=== PATIENT | male | born 1945 | race Caucasian/White ===

== ENCOUNTER 2018-02-17 15:15 | Emergency (ER) | payer OTHER, MEDICARE, BC ==
[2018-02-17] MEDS ORDERED: Lidocaine 1% 20 ML MDV INJECT ONE (15:47)
[2018-02-17] MEDS ORDERED: Bacitracin Oint 1 GM U/D Packet TOP ONE (15:48)
[2018-02-17] MEDS ORDERED: Acetaminophen/HYDROcodone 325-10 MG Tab PO ONE (16:02)
--- NOTE | 2018-02-17 16:09 | EDM.PDOC ---
ED HPI GENERAL MEDICAL PROBLEM - General Chief Complaint: Laceration Stated Complaint: CUT LT ARM Time Seen by Provider: 02/17/18 16:00 Source of Information: Reports: Patient, Family History Limitations: Reports: No Limitations - History of Present Illness INITIAL COMMENTS - FREE TEXT/NARRATIVE: 73-year-old male fell at a local store cutting his left forearm on a display. He has a 10 cm transverse laceration on the flexor surface of his forearm just distal to the elbow. It is into the subcutaneous tissue but does not involve any deep structures. Bleeding is controlled. Onset: Sudden Duration: Hour(s): (Within the last hour) Location: Reports: Upper Extremity, Left Severity: Moderate Associated Symptoms: Reports: No Other Symptoms Left Arm Pain Score (Numeric/FACES): 5 - Related Data Allergies Allergy/AdvReac Type Severity Reaction Status Date / Time No Known Allergies Allergy Verified 02/17/18 15:57 Home Meds: Home Meds Aspirin [Ecotrin] 325 mg PO DAILY 02/17/18 [History] Celecoxib 200 mg PO DAILY 02/17/18 [History] Cilostazol 100 mg PO BID 02/17/18 [History] Metoprolol Tartrate [Lopressor] 100 mg PO Q12HR 02/17/18 [History] atorvaSTATin [Lipitor] 80 mg PO BEDTIME 02/17/18 [History] ED ROS GENERAL - Review of Systems Review Of Systems: See Below Constitutional: Denies: Fever Respiratory: Denies: Shortness of Breath GI/Abdominal: Denies: Nausea, Vomiting Neurological: Denies: Paresthesia ED EXAM, SKIN/RASH Exam: See Below Exam Limited By: No Limitations General Appearance: Alert, No Apparent Distress Head: Atraumatic Respiratory/Chest: No Respiratory Distress Extremities: Other (Exam is otherwise limited to the left arm. He has normal range of motion and no decreased sensation but a transverse 10 cm laceration is present on the proximal left forearm.) Course - Vital Signs Last Recorded V/S: Last Vital Signs Temp 97.8 F 02/17/18 15:36 Pulse 81 02/17/18 16:12 Resp 16 02/17/18 16:12 BP 163/74 H 02/17/18 16:12 Pulse Ox 93 L 02/17/18 16:12 - Orders/Labs/Meds Meds: Medications Discontinued Medications Generic Name Dose Route Start Last Admin Trade Name Freq PRN Reason Stop Dose Admin Hydrocodone Bitart/Acetaminophen 1 tab 02/17/18 16:02 02/17/18 16:06 [place] 325-10 Mg PO 02/17/18 16:03 1 tab ONETIME ONE Administration Bacitracin 1 dose 02/17/18 15:48 02/17/18 16:07 Bacitracin Oint 1 Gm TOP 02/17/18 15:49 1 dose ONETIME ONE Administration Lidocaine HCl 20 ml 02/17/18 15:47 02/17/18 16:07 Xylocaine 1% INJECT 02/17/18 15:48 20 ml ONETIME ONE Administration - Re-Assessments/Exams Free Text/Narrative Re-Assessment/Exam: 02/17/18 16:52 The laceration was closed with 15 4-0 Ethilon sutures after anesthetizing with 1 % lidocaine. Topical bacitracin and a dressing was applied. Sutures can be removed in 10 days. Departure - Departure Time of Disposition: 17:33 Disposition: Home, Self-Care 01 Condition: Good Clinical Impression: Laceration of arm Qualifiers: Encounter type: initial encounter Laterality: left Qualified Code(s): S41.112A - Laceration without foreign body of left upper arm, initial encounter - Discharge Information Instructions: Laceration Care, Adult Referrals: PCP,None [Primary Care Provider] - Forms: ED Department Discharge Care Plan Goals: Keep wound covered and clean while healing. Activity as tolerated, and sutures can be removed in 10-12 days. Steri-Strips after suture removal may be beneficial. Return sooner if concerns of infection or not healing satisfactorily.
== END 2018-02-17 17:34 | disposition home or self-care (01) ==
LOC: JP.ED 15:15
DX: S51.812A Laceration without foreign body of left forearm, initial encounter (principal); W18.30XA Fall on same level, unspecified, initial encounter; Y92.512 Supermarket, store or market as the place of occurrence of the external cause; Z79.82 Long term (current) use of aspirin; Z79.899 Other long term (current) drug therapy
CPT/HCPCS: 12004; 99282; 99283; A9270; 12002

== ENCOUNTER 2020-05-15 18:08 | Emergency (ER) | payer MEDICARE, BC ==
[2020-05-15] MEDS ORDERED: Sodium Chloride 0.9% 1,000 ML IV ONE (18:27)
[2020-05-15] MEDS ORDERED: Sodium Chloride 0.9% 10 ML Syringe FLUSH PRN (18:27)
[2020-05-15] MEDS ORDERED: HYDROmorphone 0.5 MG/0.5 ML Syringe IVPUSH ONE (18:27)
--- NOTE | 2020-05-15 18:34 | EDM.PDOC ---
ED HPI GENERAL MEDICAL PROBLEM - General Stated Complaint: FELL FROM LADDER Time Seen by Provider: 05/15/20 18:15 Source of Information: Reports: Patient History Limitations: Reports: No Limitations - History of Present Illness INITIAL COMMENTS - FREE TEXT/NARRATIVE: Patient presents to the ED today via private vehicle with c/o left elbow and left sided pain after falling from a ladder approximately 6 feet. Patient was changing a light in his shop, landed on concrete, thinks he landed on left side, isn't sure if he hit his head. Patient on a full strength aspirin daily. Left elbow is bruised. Patient has not taken anything for pain, denies any lower extremity or pelvic pain. Trauma code called on arrival secondary to mechanism of injury. Onset: Today, Sudden - Related Data Allergies Allergy/AdvReac Type Severity Reaction Status Date / Time No Known Allergies Allergy Verified 02/17/18 15:57 Home Meds: Home Meds Aspirin [Ecotrin] 325 mg PO DAILY 02/17/18 [History] Celecoxib 200 mg PO DAILY 02/17/18 [History] cilostazoL [Cilostazol] 100 mg PO BID 02/17/18 [History] Metoprolol Succinate 100 mg PO DAILY 05/15/20 [History] Rosuvastatin [Crestor] 40 mg PO DAILY 05/15/20 [History] Sildenafil [Viagra] 100 mg PO BEDTIME PRN 05/15/20 [History] Past Medical History Cardiovascular History: Reports: CAD, High Cholesterol, Hypertension - Past Surgical History Cardiovascular Surgical History: Reports: AAA Repair, Coronary Artery Bypass GI Surgical History: Reports: Hernia, Abdominal Social & Family History - Caffeine Use Caffeine Use: Reports: Coffee Review of Systems - Review of Systems Review Of Systems: Comprehensive ROS is negative, except as noted in HPI. ED EXAM, GENERAL - Physical Exam Exam: See Below Exam Limited By: No Limitations General Appearance: Alert, WD/WN, No Apparent Distress Eye Exam: Bilateral Eye: EOMI, PERRL Ears: Normal External Exam, Normal Canal Nose: Normal Inspection, Normal Mucosa Throat/Mouth: Normal Inspection, Normal Oropharynx Head: Atraumatic, Normocephalic Respiratory/Chest: Lungs Clear, Other (left medial rib tenderness,no crepitus, lungs clear) Cardiovascular: Normal Peripheral Pulses, Regular Rate, Rhythm GI/Abdominal: Normal Bowel Sounds, Soft, Non-Tender Back Exam: Normal Inspection, Full Range of Motion, Vertebral Tenderness (lower lumbar spine) Extremities: Other (left elbow with swelling and bruising and abrasion, full ROM, mild tenderness, distal pulses intact) Neurological: Alert, Oriented, CN II-XII Intact, Other (GCS of 15) Psychiatric: Normal Affect, Normal Mood Skin Exam: Warm Lymphatic: No Adenopathy Course - Vital Signs Last Recorded V/S: Last Vital Signs Temp 36.5 C 05/15/20 20:42 Pulse 92 05/15/20 20:42 Resp 15 05/15/20 20:42 BP 165/76 H 05/15/20 20:42 Pulse Ox 93 L 05/15/20 20:42 Yared is a 75 year old male who presents to the ED today with c/o left elbow pain, left sided pain s/p approx 6 foot fall from ladder landing on left side. Please refer to HPI and focused exam. No obvious bony abnormalities, concern for left rib fracture with left lateral tenderness, lungs are clear, abdomen soft, no pain to lower extremities or with pelvic rock. Head is atraumatic, no midline neck tenderness, some spinous process tenderness to lumbar spine. CT of head, cervical spine, chest, abdomen, and pelvis obtained as well as lumbar spine and left elbow X-ray. Patient given IV Dilaudid for pain as well as IV fluids. CT head and Cervical Spine are unremarkable. CT CAP with rib fractures, left, 5,6,7,8,11. Left pulmonary contusion. Left flank and buttock hematoma. CT Lumbar negative Aleve recommended for baseline pain, patient states Tylenol doesn't work. Percocet for severe pain, narcotic safety and side effects discussed. Tylenol max dosing discussed as well as reasons to return to the ED which given extent of trauma I have a low threshold for, patient does not want to stay in the hospital overnight and wants to go home. Splinting discussed and patient discharged home with incentive spirometer, instructed on use. Patient agreeable to plan of care and discharged in stable condition with his driving. - Orders/Labs/Meds Orders: Active Orders 24 hr Category Date Time Status Peripheral IV Care [RC] . DIRECTED Care 05/15/20 18:27 Active Elbow Min 3V Lt [CR] Stat Exams 05/15/20 18:29 Taken Iopamidol [Isovue-300 (61%)] Med 05/15/20 21:45 Active 100 ml IV . DIRECTED Sodium Chloride 0.9% [Normal Saline] 80 ml Med 05/15/20 21:45 Active IV ASDIRECTED Sodium Chloride 0.9% [Saline Flush] Med 05/15/20 18:27 Active 10 ml FLUSH ASDIRECTED PRN Peripheral IV Insertion Adult [OM.PC] Routine Oth 05/15/20 18:27 Ordered Medication Orders Sodium Chloride (Normal Saline) 80 mls @ 3.5 mls/sec IV ASDIRECTED FIDENCIO Last Admin: 05/15/20 21:46 Dose: 3 mls/sec Documented by: LUKE Iopamidol (Isovue-300 (61%)) 100 ml IV . DIRECTED FIDENCIO Last Admin: 05/15/20 21:46 Dose: 100 ml Documented by: LUKE Sodium Chloride (Saline Flush) 10 ml FLUSH ASDIRECTED PRN PRN Reason: Keep Vein Open Meds: Medications Generic Name Dose Route Start Last Admin Trade Name [place] PRN Reason Stop Dose Admin Sodium Chloride 80 mls @ 3.5 mls/sec 05/15/20 21:45 05/15/20 21:46 Normal Saline IV 3 mls/sec ASDIRECTED FIDENCIO Administration Iopamidol 100 ml 05/15/20 21:45 05/15/20 21:46 Isovue-300 (61%) IV 100 ml . DIRECTED FIDENCIO Administration Sodium Chloride 10 ml 05/15/20 18:27 Saline Flush FLUSH ASDIRECTED PRN Keep Vein Open Discontinued Medications Generic Name Dose Route Start Last Admin Trade Name Freq PRN Reason Stop Dose Admin Hydromorphone HCl 0.5 mg 05/15/20 18:27 05/15/20 18:49 Dilaudid IVPUSH 05/15/20 18:28 0.5 mg ONETIME ONE Administration Sodium Chloride 1,000 mls @ 999 mls/hr 05/15/20 18:27 05/15/20 18:48 Normal Saline IV 05/15/20 19:27 999 mls/hr .BOLUS ONE Administration Sodium Chloride 10 ml 05/15/20 21:38 05/15/20 21:46 Saline Flush FLUSH 05/15/20 21:39 10 ml ONETIME ONE Administration Departure - Departure Time of Disposition: 22:30 Disposition: Home, Self-Care 01 Condition: Good Clinical Impression: Fracture of rib Qualifiers: Encounter type: initial encounter Rib fracture type: multiple ribs Fracture type: closed Laterality: left Qualified Code(s): S22.42XA - Multiple fractures of ribs, left side, initial encounter for closed fracture Fall from ladder Qualifiers: Encounter type: initial encounter Qualified Code(s): W11.XXXA - Fall on and from ladder, initial encounter Contusion, elbow Qualifiers: Encounter type: initial encounter Laterality: left Qualified Code(s): S50.02XA - Contusion of left elbow, initial encounter Contusion of buttock Qualifiers: Encounter type: initial encounter Qualified Code(s): S30.0XXA - Contusion of lower back and pelvis, initial encounter Left pulmonary contusion Qualifiers: Encounter type: initial encounter Qualified Code(s): S27.321A - Contusion of lung, unilateral, initial encounter - Discharge Information Instructions: Rib Fracture, Elbow Contusion, [id number], Pulmonary Contusion, Adult Referrals: PCP,None [Primary Care Provider] - Forms: ED Department Discharge Additional Instructions: Wear sling for comfort for the next week as needed. I would recommend scheduled Aleve for the next few days per bottle instructions. Percocet for severe pain, this is a narcotic and does contain Tylenol. Do not exceed more than 4,000 mg of Tylenol from all sources in a [address] or drink alcohol if you take the Percocet. It may cause constipation so take an over the counter stool softener as needed. I want you to use the incentive spirometer at least twice per hour while you are awake for the next 5 days. Return here with any worsening symptoms or new concerns such as fever, shortness of breath or coughing up blood or difficulty controlling pain at home. Stay off the ladder!!!! Sepsis Event Note (ED) - Focused Exam Vital Signs: Vital Signs Temp Pulse Resp BP Pulse Ox 05/15/20 20:42 36.5 C 92 15 165/76 H 93 L 05/15/20 19:41 36.6 C 83 16 175/81 H 94 L 05/15/20 19:15 36.6 C 83 16 188/86 H 97 05/15/20 19:11 36.6 C 83 16 176/88 H 95 05/15/20 18:56 84 16 173/82 H 95 05/15/20 18:41 36.6 C 78 16 175/87 H 95 05/15/20 18:30 36.6 C 83 16 188/86 H 97 - My Orders Last 24 Hours: My Active Orders 05/15/20 18:27 Peripheral IV Care [RC] . DIRECTED Sodium Chloride 0.9% [Saline Flush] 10 ml FLUSH ASDIRECTED PRN Peripheral IV Insertion Adult [OM.PC] Routine 05/15/20 18:29 Elbow Min 3V Lt [CR] Stat 05/15/20 21:45 Iopamidol [Isovue-300 (61%)] 100 ml IV . DIRECTED Sodium Chloride 0.9% [Normal Saline] 80 ml IV ASDIRECTED - Assessment/Plan Last 24 Hours: My Active Orders 05/15/20 18:27 Peripheral IV Care [RC] . DIRECTED Sodium Chloride 0.9% [Saline Flush] 10 ml FLUSH ASDIRECTED PRN Peripheral IV Insertion Adult [OM.PC] Routine 05/15/20 18:29 Elbow Min 3V Lt [CR] Stat 05/15/20 21:45 Iopamidol [Isovue-300 (61%)] 100 ml IV . DIRECTED Sodium Chloride 0.9% [Normal Saline] 80 ml IV ASDIRECTED
[2020-05-15] MEDS ORDERED: Sodium Chloride 0.9% 10 ML Syringe FLUSH ONE (21:38)
--- NOTE | 2020-05-15 21:42 | CRLCT ---
INDICATION: Fall from ladder. TECHNIQUE: CT Head without contrast. COMPARISON: None FINDINGS: CSF spaces: Within normal limits for age. No hydrocephalus. Brain parenchyma: The palomo-white differentiation is normal. No sign of mass, hemorrhage, or midline shift. There are intracranial atherosclerotic calcifications. Minimal periventricular low attenuation is nonspecific but most consistent with changes of small vessel ischemic disease. Skull base and calvarium: No acute fracture. Visualized paranasal sinuses and mastoid air cells are clear. IMPRESSION: No acute intracranial abnormality. Dictated by Lino Hayden MD @ 05/15/2020 9:41:55 PM Please note that all CT scans at this facility use dose modulation, iterative reconstruction, and/or weight-based dosing when appropriate to reduce radiation dose to as low as reasonably achievable. Dictated by: Lino Hayden MD @ 05/15/2020 21:42:05 (Electronically Signed)
[2020-05-15] MEDS ORDERED: Sodium Chloride 0.9% 80 ML IV SCH (21:45)
[2020-05-15] MEDS ORDERED: Iopamidol 612 MG/ML 100 ML Bottle IV SCH (21:45)
--- NOTE | 2020-05-15 21:49 | CRLCT ---
INDICATION: 6 foot fall from ladder. TECHNIQUE: CT cervical spine without contrast. COMPARISON: None FINDINGS: No acute fracture. There is straightening of the cervical lordosis. No evidence of traumatic malalignment. No suspicious bone lesion. Moderate to severe loss of intervertebral disc space height at C5-C6 with endplate osteophytic change. Mild loss of intervertebral disc space height at the remaining levels. Bilateral neural foraminal narrowing at C5-C6. Posterior disc osteophyte complex at C5-C6 indents the ventral thecal sac. Bilateral facet joint degenerative changes C5-C6. Prevertebral soft tissues are normal. There is atherosclerotic calcification. IMPRESSION: 1. Straightening of cervical lordosis can be seen with muscle spasm and/or C-collar placement. 2. There is otherwise no acute fracture or traumatic malalignment. 3. Degenerative changes most pronounced at C5-C6. Dictated by Lino Hayden MD @ 05/15/2020 9:47:30 PM Please note that all CT scans at this facility use dose modulation, iterative reconstruction, and/or weight-based dosing when appropriate to reduce radiation dose to as low as reasonably achievable. Dictated by: Lino Hayden MD @ 05/15/2020 21:47:35 (Electronically Signed)
--- NOTE | 2020-05-15 22:07 | CRLCT ---
INDICATION: 6 foot fall from ladder. Left rib pain. Shortness of breath. TECHNIQUE: CT chest, abdomen and pelvis acquired with IV contrast. COMPARISON: None FINDINGS: Chest: Cardiovascular structures: Heart size is normal. Coronary artery calcifications noted. Thoracic aorta and main pulmonary artery are normal in caliber. There is atherosclerotic calcification of the aorta. Mediastinum and sage: No mass or adenopathy. Lungs: No pneumothorax. No consolidation or edema. Focal subpleural opacity in the posterior inferior left lower lobe may reflect pulmonary contusion. Bilateral lower lobe atelectasis and dependent opacities. Pleura and pericardium: No effusions. Chest wall and axilla: No mass or adenopathy. Bones: Sequelae of median sternotomy. Mildly displaced fracture of left posterior lateral rib 5. Nondisplaced fracture of left posterior lateral rib 6. Nondisplaced fracture of posterior lateral left rib 7. Mildly displaced fracture of posterior lateral left rib 8. Nondisplaced fracture of posterior left rib 11 Abdomen and Pelvis: Liver: Unremarkable. Spleen: Unremarkable. Pancreas: Unremarkable. Gallbladder and bile ducts: Unremarkable. Kidneys: No traumatic abnormality. Cortical scar in the right upper pole. Punctate nonobstructing calculus in the right upper pole. 2 mm nonobstructing calculus in the upper pole of the left kidney. No hydronephrosis in either kidney. Adrenal glands: Unremarkable. GI tract: No acute bowel abnormality. Appendix is normal. Vascular structures: There is atherosclerotic calcification. Focal aneurysm of the infrarenal abdominal aorta measuring approximately 3 cm in diameter with kissing aorto bi-iliac stent graft. There are postprocedural changes in the right groin with a perivascular fluid collection/hematoma from recent vascular access measuring 3.1 x 3.1 x 10.5 cm in the AP, TR, CC dimensions respectively. Lymph nodes: Unremarkable. Miscellaneous: No ascites. No free air. 5.5 x 2.5 by 4.9 cm hematoma in the soft tissues of the left flank with associated traumatic fat stranding extending caudally into the upper left buttock region. Pelvic Organs: The prostate is prominent. Urinary bladder is normal. Likely vasectomy clips. Bones: No acute abnormality. No suspicious bone lesion. IMPRESSION: 1. Multiple left rib fractures involving ribs 5-8 and 11. 2. Focal opacity in the posterior inferior left lower lobe may represent pulmonary contusion. 3. No traumatic intra-abdominal abnormality. 4. Hematoma and traumatic subcutaneous fat stranding in the left flank and upper buttock region. 5. Infrarenal abdominal aortic aneurysm with bi-iliac stent graft. Postprocedural changes in the right groin with a hematoma measuring 3.1 x 3.1 x 10.5 cm at the site of vascular access. Dictated by Lino Hayden MD @ 05/15/2020 10:06:22 PM Please note that all CT scans at this facility use dose modulation, iterative reconstruction, and/or weight-based dosing when appropriate to reduce radiation dose to as low as reasonably achievable. Dictated by: Lino Hayden MD @ 05/15/2020 22:06:36 (Electronically Signed)
--- NOTE | 2020-05-15 22:11 | CRLCT ---
INDICATION: Fall. Pain. TECHNIQUE: CT lumbar spine without contrast. COMPARISON: CT abdomen pelvis 05/15/2020 FINDINGS: Mildly displaced fracture of posterior left rib 11. No acute fracture of the lumbar spine. Alignment of the lumbar spine is maintained. No suspicious bone lesion. Mild multilevel degenerative disc disease. Atherosclerotic calcification. Infrarenal abdominal aortic aneurysm with kissing aorto bi-iliac stent graft. Punctate nonobstructing calculus in the upper pole left kidney. Traumatic fat stranding in the subcutaneous fat of the left flank. IMPRESSION: 1. No acute fracture or traumatic malalignment in the lumbar spine. 2. Mildly displaced fracture posterior left rib 11. 3. Traumatic fat stranding in the subcutaneous fat of the left flank. Dictated by Lino Hayden MD @ 05/15/2020 10:10:41 PM Please note that all CT scans at this facility use dose modulation, iterative reconstruction, and/or weight-based dosing when appropriate to reduce radiation dose to as low as reasonably achievable. Dictated by: Lino Hayden MD @ 05/15/2020 22:11:13 (Electronically Signed)
--- NOTE | 2020-05-16 09:06 | CR ---
Elbow Min 3V Lt CLINICAL HISTORY: Pain FINDINGS: No acute fracture or dislocation is noted. The fat pads are in normal position. Impression: No fracture or dislocation.
== END 2020-05-15 23:28 | disposition home or self-care (01) ==
LOC: JP.ED 18:08
DX: S22.42XA Multiple fractures of ribs, left side, initial encounter for closed fracture (principal); S50.02XA Contusion of left elbow, initial encounter; S30.0XXA Contusion of lower back and pelvis, initial encounter; S27.321A Contusion of lung, unilateral, initial encounter; I25.10 Atherosclerotic heart disease of native coronary artery without angina pectoris; E78.00 Pure hypercholesterolemia, unspecified; I10 Essential (primary) hypertension; Z79.82 Long term (current) use of aspirin; Z79.899 Other long term (current) drug therapy; W11.XXXA Fall on and from ladder, initial encounter
CPT/HCPCS: 70450; 71260; 72125; 72131; 73080; 74177; 96361; 96374; 99284; J1170; J7030; J7050; Q9967; 99285

== ENCOUNTER 2022-12-04 09:54 | Emergency (ER) | payer MEDICARE, BC ==
[2022-12-04] MEDS ORDERED: Sodium Chloride 0.9% 10 ML Syringe FLUSH PRN ×2 (11:18)
[2022-12-04 12:03] LABS: ESTIMATED GFR 92 mL/min (>60); TROPONIN I HIGH SENSITIVITY 8.2 pg/mL (<=60.3)
== END 2022-12-04 12:59 | disposition home or self-care (01) ==
LOC: JP.ED 09:54
DX: R55 Syncope and collapse (principal); D64.9 Anemia, unspecified; E87.1 Hypo-osmolality and hyponatremia; I25.10 Atherosclerotic heart disease of native coronary artery without angina pectoris; E78.00 Pure hypercholesterolemia, unspecified; I10 Essential (primary) hypertension; Z87.891 Personal history of nicotine dependence; Z79.82 Long term (current) use of aspirin; Z79.01 Long term (current) use of anticoagulants; Z79.02 Long term (current) use of antithrombotics/antiplatelets; Z79.899 Other long term (current) drug therapy
CPT/HCPCS: 36415; 70450; 70450-26; 70486; 70486-26; 80053; 83605; 84484; 85025; 85379; 93005; 99284

== ENCOUNTER 2022-12-05 08:44 | Emergency (ER) | payer MEDICARE, BC ==
[2022-12-05] MEDS ORDERED: fentaNYL 50 MCG/ML SDV IVPUSH ONE (10:04)
== END 2022-12-05 12:15 ==
LOC: JP.ED 08:44
DX: K92.1 Melena (principal); D50.0 Iron deficiency anemia secondary to blood loss (chronic); R55 Syncope and collapse; I25.10 Atherosclerotic heart disease of native coronary artery without angina pectoris; E78.00 Pure hypercholesterolemia, unspecified; I10 Essential (primary) hypertension; Z95.1 Presence of aortocoronary bypass graft; Z79.82 Long term (current) use of aspirin; Z79.899 Other long term (current) drug therapy; Z79.02 Long term (current) use of antithrombotics/antiplatelets; Z79.01 Long term (current) use of anticoagulants
CPT/HCPCS: 36415; 36430; 80048; 82272; 85025; 86850; 86900; 86901; 86920; 86922; 96374; 99284; 99285; J3010; P9016

== ENCOUNTER 2024-02-05 08:23 | Day surgery (SDC) | payer MEDICARE, BC ==
[2024-02-05] MEDS: Sodium Chloride 0.9% 1,000 ML IV SCH (08:59)
[2024-02-05] MEDS ORDERED: Propofol 200 MG/20 ML SDV ONE (09:37)
[2024-02-05] MEDS ORDERED: fentaNYL 50 MCG/ML SDV ONE (09:37)
== END 2024-02-05 10:57 | disposition home or self-care (01) ==
LOC: JP.SDS 08:23
PROVIDERS: ATTEND Surgery
DX: K29.50 Unspecified chronic gastritis without bleeding (principal); K25.9 Gastric ulcer, unspecified as acute or chronic, without hemorrhage or perforation; K22.89 Other specified disease of esophagus; I10 Essential (primary) hypertension; I25.2 Old myocardial infarction; Z86.73 Personal history of transient ischemic attack (TIA), and cerebral infarction without residual deficits; Z95.1 Presence of aortocoronary bypass graft
CPT/HCPCS: 43239; 88305; J2704; J3010; J7030